=== PATIENT | male | born 1970 | race Caucasian/White ===

== ENCOUNTER 2019-08-03 08:58 | Emergency (ER) | payer MEDICAID, SELFPAY ==
[2019-08-03 08:59] VITALS: BP 163/102; PULSE 82; RESP 18; TEMP 36.8; O2SAT 98; BMI 32.3
--- NOTE | 2019-08-03 09:02 | CT_ITS ---
STUDY: CT BRAIN WITHOUT CONTRAST REASON FOR EXAM: Male, 49 years old. RT SIDE FACIAL DEFICIT, PAIN, HEADACHE, HX STROKE 09/2018 RADIATION DOSAGE (If Supplied By Facility): CTDIvol = ( 44.99 ) mGy, DLP = ( 779.24 ) mGycm TECHNIQUE: Transaxial CT imaging of the brain was performed without administration of intravenous contrast material. Individualized dose optimization techniques were used for this CT. COMPARISON: No relevant priors. FINDINGS: Normal soft tissue structures. Normal calvarium. Normal size ventricles and extra-axial spaces for the patient''s age. Normal white matter tracts of the cerebral hemispheres. Normal basal ganglia and thalami. Normal brainstem. Normal cerebellum. There is no intracranial hemorrhage. There are no findings of an acute ischemic infarction. Normal visualized paranasal sinuses. CT/Brain/Head without Contrast IMPRESSION: Normal unenhanced CT scan of the brain. Electronically Signed: Luis Antonio Hall, at 9:43 EDT , Service support ,
[2019-08-03] MEDS: 0.9% Normal Saline 1,000 ML 999 ML IV (09:06)
--- NOTE | 2019-08-03 09:06 | ED.DCSUM_ITS ---
History of Present Illness Chief Complaint: Headache Informant: Patient Onset: Yesterday Context: Gradual Onset Timing: Continuous Current Severity: Moderate Maximum Severity: Moderate Narrative: The patient is a 49-year-old male medical history significant for upper extremity DVT, prior stroke requiring TPA, residual right-sided deficit the presents to the emergency department with frontal headache. Patient states he had symptoms for the past 2 days. He just recently traveled here from [place]. He states that he was in custody of police when his headache started. He denies any trauma. He has not had any infectious symptoms. He denies fevers, chills, cough. He denies neck pain. The patient is otherwise been in his normal state of health. Prior similar symptoms: Yes Recent Illness/Hospitalization: No Past Medical History - Allergies and Home Meds Allergies/Adverse Reactions: Allergies No Known Allergies Allergy (Verified 08/03/19 08:59) Primary Care Physician: Care Physician,No Primary [Primary Care Provider] - Prior records reviewed: Yes Past Medical History: - - Prior CVA, hypertension Smoking Status: Current every day smoker Review of Systems General: Denies: Chills, Fever, Sweats Eyes: Denies: Visual changes - bilaterally, Diplopia ENT: Denies: Rhinorrhea, Sore throat Cardiovascular: Denies: Chest pain, Palpitations Respiratory: Denies: Dyspnea, Cough, Dyspnea on exertion Gastrointestinal: Denies: Abdominal pain, Nausea, Vomiting, Diarrhea, Melena, Hematochezia Genitourinary: Denies: Dysuria, Hematuria, Frequency Musculoskeletal: Denies: Back pain, Extremity Pain Skin: Denies: Rash, Wounds Neurological: Reports: Headache. Denies: Weakness, Numbness Physical Exam Vital Signs/Narrative: Vital Signs Temp Pulse Resp BP Pulse Ox 08/03/19 08:59 98.2 F 82 18 163/102 H 98 Inital Vital Signs reviewed: Yes General: Well nourished, Well developed, No Acute Distress Head: Normocephalic, Atraumatic Eyes: Perrl, EOMI ENT: Moist mucous membranes, No rhinorrhea Neck: Supple, Nontender Cardiovascular: Regular rate, Regular rhythm, No murmurs Respiratory: No distress, CTA bilaterally, Chest nontender Abdomen: Soft, Nontender, Nondistended, Normal bowel sounds Back: Nontender, Normal Inspection Extremities: Nontender, No edema Skin: Normal color, No rash Neurological: Alert, Oriented x3, Cranial nerves II-XII grossly intact, Normal Strength, Normal Sensation Psychological: Normal affect, Normal Mood Diagnostic/Tx/Re-eval Clinical Impression(s) from Imaging Studies Brain CT 08/03/19 09:02 IMPRESSION: Normal unenhanced CT scan of the brain. Electronically Signed: Luis Antonio Hall, at 9:43 EDT , Service support , Chest X-Ray 08/03/19 09:15 IMPRESSION: Mild cardiomegaly. Electronically Signed: Luis Antonio Hall, at 9:30 EDT , Service support , Abnormal Lab Results 08/03/19 08/03/19 09:13 09:13 WBC 11.1 H RBC 5.28 Hgb 15.7 Hct 47.0 MCV 89.0 MCH 29.7 MCHC 33.4 RDW Std Deviation 44.0 H RDW Coeff of Karen 13.7 Plt Count 315 MPV 8.5 Immature Gran % (Auto) 0.600 Neut % (Auto) 70.9 H Lymph % (Auto) 20.4 Elliott % (Auto) 6.4 Eos % (Auto) 1.3 Baso % (Auto) 0.4 Absolute Neuts (auto) 7.9 H Absolute Lymphs (auto) 2.26 Nucleated RBC % 0 Sodium 139 Potassium 3.4 L Chloride 106 Carbon Dioxide 26.0 Anion Gap 7 BUN 11 Creatinine 1.18 Estim Creat Clear Calc 76.56 Est GFR (MDRD) Af Amer 85 Est GFR (MDRD) Non-Af 70 BUN/Creatinine Ratio 9.3 L Glucose 110 H Calcium 8.9 - Medical Decision Making The patient presents to the emergency department with a gradual progressive headache. He states this is similar to headaches he is had in the past. He denies any infectious symptoms. His neurologic exam is reassuring. He is not meningitic or encephalopathic. The patient was treated with Compazine and Benadryl prior to head CT. CT the brain was obtained which shows no acute normalities. Patient was then given Toradol and Decadron. Screening labs were obtained were unremarkable. The patient was requesting opiate analgesics for his headache. We did litigation counsel him that this is not appropriate for migraine headache or even undifferentiated headache. At this point, given his benign work-up I do feel that he is safe for outpatient therapy. The patient will be discharged home. Impression 1. Headache ED Disposition - Plan for ED Patient: Instructions: HEADACHE, Unspecified Referrals: Care Physician,No Primary [Primary Care Provider] -
--- NOTE | 2019-08-03 09:06 | ED.RN ---
PT STATES THAT IS ROBERTSON IS A 7/10. PT IS TEXTING AND SHOWING THIS RN PICTURES OF HIS GIRLFRIEND AND HIMSELF. PT VERY CHATTY. PT ALSO REQUESTING MORPHINE FOR ROBERTSON.
--- NOTE | 2019-08-03 09:15 | RAD_ITS ---
STUDY: X-RAY CHEST REASON FOR EXAM: Male, 49 years old. ROBERTSON, COPD TECHNIQUE: Single AP portable view of the chest. COMPARISON: None. FINDINGS: The lungs are clear and expanded. There is no demonstrated pleural abnormality. There is mild cardiac enlargement. Normal mediastinum and ayana. Normal visualized pulmonary arteries. Normal visualized aortic arch and descending thoracic aorta. Normal visualized thoracic spine. Normal visualized ribs, clavicles, and shoulders. There is no demonstrated abnormality of the visualized soft tissue structures of the upper abdomen. RAD/Chest 1 View (Portable) IMPRESSION: Mild cardiomegaly. Electronically Signed: Luis Antonio Hall, at 9:30 EDT , Service support ,
[2019-08-03] MEDS: DiphenhydrAMINE 50 MG/ML Syringe IV (09:21)
[2019-08-03] MEDS: proCHLORPERazine 10 MG/2 ML Vial IV (09:21)
[2019-08-03 09:24] LABS: Absolute Lymphocyte Count 2.26 X10^3/uL (0.83-4.51); Absolute Neutrophil Count 7.9 X10^3/uL (2.0-7.7); Basophil# 0.04 X10^3/uL; Basophil% 0.4 % (0-1); Eosinophil# 0.14 X10^3/uL; Eosinophils% 1.3 % (0-5); Hemoglobin 15.7 g/dL (13.0-16.5); Lymphocyte # 2.26 X10^3/ul (4.0); Lymphocyte % 20.4 % (19-41); Mean Corp Hgb Conc 33.4 g/dL (32-36); Mean Corpuscular Hgb 29.7 pg (27.0-32.0); Mean Platelet Vol. 8.5 fl (6.2-12.0); Monocyte# 0.71 X10^3/uL; Monocyte% 6.4 % (0-10); NRBC Flagged by Analyzer 0 % (0-5); Neutrophil # 7.88 X10^3/uL (2.7-7.7); Neutrophil % 70.9 % (47-70); Platelet Count 315 K/mm3 (150-450); RBC Distribution Width CV 13.7 % (11.6-14.6); Red Blood Count 5.28 M/mm3 (4.6-6.2); White Blood Count 11.1 K/mm3 (4.4-11.0)
[2019-08-03 09:37] LABS: Anion Gap 7 (5-15); BUN 11 mg/dL (7-18); BUN/Creat Ratio 9.3 RATIO (10-20); Calcium,Total 8.9 mg/dL (8.5-10.1); Chloride 106 mmol/L (98-107); Creatinine, Serum 1.18 mg/dL (0.70-1.30); EST Glomerular Filtration Rate 70 mL/min (>60); Est Glom Filt Rate - Afr Amer 85 mL/min (>60); Estimated Creatinine Clearance 76.56 ml/min; Glucose 110 mg/dL (74-106); Potassium 3.4 mmol/L (3.5-5.1); Sodium Level 139 mmol/L (136-145)
[2019-08-03] MEDS: dexAMETHasone 10 MG/ML Vial IV (09:54)
[2019-08-03] MEDS: Ketorolac 15 MG/ML Vial IV (09:54)
[2019-08-03 10:41] VITALS: BP 124/66; PULSE 71; RESP 15; O2SAT 98
== END 2019-08-03 10:43 | disposition home or self-care (01) ==
LOC: ED 09:51
PROVIDERS: Emergency Provider Emergency Medicine
DX: R51 Headache (principal); I69.398 Other sequelae of cerebral infarction; I10 Essential (primary) hypertension; F17.200 Nicotine dependence, unspecified, uncomplicated; Z86.718 Personal history of other venous thrombosis and embolism
CPT/HCPCS: 70450; 71045; 80048; 85025; 96361; 96374; 96375; 99285